=== PATIENT | female | born 1995 | race Caucasian/White ===

== ENCOUNTER 2024-10-05 17:00 | Emergency (ER) | payer OTHER ==
[~2024-10-05] VITALS: Ht 162.6 cm; Wt 84.4 kg
[~2024-10-05 17:00] MED LIST: BUPROPION XL300 MG PO; FLUCONAZOLE150 MG PO; LAMOTRIGINE150 MG PO; MACROBID 100 M100 MG PO; METRONIDAZOLE500 MG PO; PYRIDIUM100 MG PO
[2024-10-05 19:26] LABS: BLOOD/HGB, URINE NEGATIVE (Negative); KETONE, URINE NEGATIVE (Negative); LEUK ESTERASE, URINE NEGATIVE (negative); NITRITE, URINE NEGATIVE (negative)
[2024-10-05] MEDS ORDERED: FLUCONAZOLE150 MG PO (19:38)
[2024-10-05] MEDS ORDERED: FLUCONAZOLE 150 MG TAB PO ONE (19:45)
[2024-10-05 19:50] VITALS: BP 108/65
== END 2024-10-05 19:50 | disposition home or self-care (01) ==
LOC: ED 17:00
PROVIDERS: Family Medicine
DX: B37.9 Candidiasis, unspecified (principal); Z79.899 Other long term (current) drug therapy; Z88.1 Allergy status to other antibiotic agents
CPT/HCPCS: 81003; 99283